=== PATIENT | female | born 1985 | race African-American/Black ===

== ENCOUNTER → 2020-05-22 11:23 | Outpatient (CLI) | payer BC, SELFPAY ==
--- NOTE | ~2020-05-22 | US_ITS ---
EXAMINATION: US pelvic complete w TV DATE: 05/22/2020 11:52 INDICATION: Polycystic ovarian syndrome, abdominal cramping TECHNIQUE: Multiple transabdominal and endovaginal sonographic images of the pelvis were obtained. COMPARISON: None. FINDINGS: The uterus measures 9.2 x 4.9 x 5.6 cm. A 0.8 x 0.6 x 0.7 cm hypoechoic area of the right u terine body has the appearance of an intramural fibroid. A 1.2 x 1.0 x 0.8 cm area of the posterior u terine body with similar sonographic features also likely represents a fibroid. The endometrial compl ex measures 4 mm. The right ovary measures 1.2 x 0.8 x 1.5 cm. The left ovary measures 3.6 x 1.6 x 2. 1 cm and contains small follicles. There is normal vascular flow in the ovaries. There is no free flu id in the pelvis. IMPRESSION: 1. No sonographic correlate for the patient's symptoms. Reviewed, dictated and finalized at location A.
== END ==
PROVIDERS: Visit Provider Obstetrics & Gynecology
DX: E28.2 Polycystic ovarian syndrome (principal)
CPT/HCPCS: 76830; 76856